=== PATIENT | male | born 1995 | race Asian ===

== ENCOUNTER 2023-06-06 16:38 | Emergency (ER) | payer MEDICAID ==
[~2023-06-06] VITALS: Ht 172.7 cm; Wt 63.6 kg
[2023-06-06] MEDS ORDERED: LORazepam 1 MG TABLET PO ONE (17:30)
[2023-06-06] MEDS ORDERED: LORA-1000 PO (17:41)
[2023-06-06 18:29] VITALS: BP 134/76; PULSE 86; RESP 18; TEMP 97.6
== END 2023-06-06 18:33 | disposition home or self-care (01) ==
LOC: EMS 16:44
DX: F41.9 Anxiety disorder, unspecified (principal); J45.909 Unspecified asthma, uncomplicated
CPT/HCPCS: 99283